=== PATIENT | male | born 1980 | race Caucasian/White ===

== ENCOUNTER 2016-03-08 03:02 | Emergency (ER) | payer OTHER ==
[2016-03-08 03:18] VITALS: BP 140/84; PULSE 92; TEMP 97.6; BMI 29.2
[2016-03-08] MEDS ORDERED: OXYCODONE/APAP 5/325MG COMBO TABLET PO ONE (03:30)
--- NOTE | 2016-03-08 03:35 | PDOC ---
History of Present Illness - General History Source: Patient Exam Limitations: No Limitations - History of Present Illness Initial Comments: 03/08/16 04:27 The patient is a 36-year-old male with no significant past medical history, and presents to the emergency department with right sided chest pain s/p collision with another person tonight. The patient states that he collided with the person during a soccer match. He reports the impact and pain is localized to the right side of the upper chest wall. The chest pain is exacerbated by inspiration, walking, and laying on his right side. He reports it feels like bad spasm. He reports associated shortness of breath. The patient denies headache, dizziness, or head trauma. The patient denies fever , chills, nausea, vomit, diarrhea and constipation. The patient denies dysuria, frequency, urgency and hematuria. Allergies: NKDA Social History: Denies tobacco, ETOH, or drug use. <Denise Lugo - Last Filed: 03/08/16 04:27> <Cori Hale - Last Filed: 03/08/16 05:39> - General Chief Complaint: Pain Stated Complaint: SIDE PAIN Time Seen by Provider: 03/08/16 03:19 Past History <Denise Lugo - Last Filed: 03/08/16 04:27> - Psycho/Social/Smoking Cessation Hx Suicidal Ideation: No Smoking History: Never smoked Have you smoked in the past 12 months: No Information on smoking cessation initiated: No Hx Alcohol Use: No Drug/Substance Use Hx: No <Cori Hale - Last Filed: 03/08/16 05:39> - Past Medical History Allergies/Adverse Reactions: Allergies Allergy/AdvReac Type Severity Reaction Status Date / Time No Known Allergies Allergy Verified 03/08/16 03:12 Home Medications: Ambulatory Orders NK [No Known Home Medication] 03/08/16 Review of Systems - Review of Systems Able to Perform ROS?: Yes Comments:: 03/08/16 04:27 CONSTITUTIONAL: Absent: fever, chills, diaphoresis, generalized weakness, malaise, loss of appetite HEENT: Absent: rhinorrhea, nasal congestion, throat pain, throat swelling, difficulty swallowing, mouth swelling, ear pain, eye pain, visual changes CARDIOVASCULAR: Present: (+) right sided chest pain Absent: chest pain, syncope, palpitations, irregular heart rate, lightheadedness , peripheral edema RESPIRATORY: Present: (+) shortness of breath Absent: cough, dyspnea with exertion, orthopnea, wheezing, stridor, hemoptysis GASTROINTESTINAL: Absent: abdominal pain, abdominal distension, nausea, vomiting, diarrhea, constipation, melena, hematochezia GENITOURINARY: Absent: dysuria, frequency, urgency, hesitancy, hematuria, flank pain, genital pain MUSCULOSKELETAL: Absent: myalgia, arthralgia, joint swelling SKIN: Absent: rash, itching, pallor HEMATOLOGIC/IMMUNOLOGIC: Absent: easy bleeding, easy bruising, lymphadenopathy, frequent infections ENDOCRINE: Absent: unexplained weight gain, unexplained weight loss, heat intolerance, cold intolerance NEUROLOGIC: Absent: headache, focal weakness or paresthesias, dizziness, unsteady gait, seizure, mental status changes, bladder or bowel incontinence PSYCHIATRIC: Absent: anxiety, depression, suicidal or homicidal ideation, hallucinations. <LugoDenise - Last Filed: 03/08/16 04:27> *Physical Exam - Vital Signs Last Vital Signs Temp Pulse Resp BP Pulse Ox 97.6 F 92 H 18 140/84 99 03/08/16 03:13 03/08/16 03:13 03/08/16 03:13 03/08/16 03:13 03/08/16 03:13 - Physical Exam Comments: 03/08/16 04:28 GENERAL: Well developed, well nourished. Awake and alert. No acute distress. HEENT: Normocephalic, atraumatic. PERRLA, EOMI. No conjunctival pallor. Sclera are non- icteric. Moist mucous membranes. Oropharynx is clear. NECK: Supple. Full ROM. No JVD. Carotid pulses 2+ and symmetric, without bruits. No thyromegaly. No lymphadenopathy. CARDIOVASCULAR: (+) Non-tender in the chest. Regular rate and rhythm. No murmurs, rubs, or gallops. Distal pulses are 2+ and symmetric. PULMONARY: (+) Splinting on inhalation. Lungs clear to auscultation bilaterally. No wheezing, rales or rhonchi. ABDOMINAL: Soft. Non-distended. No rebound or guarding. No organomegaly. Normoactive bowel sounds. MUSCULOSKELETAL Normal range of motion at all joints. No bony deformities or tenderness. No CVA tenderness. EXTREMITIES: No cyanosis. No clubbing. No edema. No calf tenderness. SKIN: Warm and dry. Normal capillary refill. No rashes. No jaundice. NEUROLOGICAL: Alert, awake, appropriate. Cranial nerves 2-12 intact. No deficits to light touch and temperature in face, upper extremities and lower extremities. No motor deficits in the in face, upper extremities and lower extremities. Normoreflexic in the upper and lower extremities. Normal speech. Toes are down- going bilaterally. Gait is normal without ataxia. PSYCHIATRIC: Cooperative. Good eye contact. Appropriate mood and affect. <Denise Lugo - Last Filed: 03/08/16 04:27> - Vital Signs Last Vital Signs Temp Pulse Resp BP Pulse Ox 97.6 F 92 H 18 140/84 99 03/08/16 03:13 03/08/16 03:13 03/08/16 03:13 03/08/16 03:13 03/08/16 03:13 <Cori Hale - Last Filed: 03/08/16 05:39> ED Treatment Course - Medications Given in the ED: ED Medications Discontinued Medications Generic Name Dose Route Start Last Admin Trade Name Gradyq PRN Reason Stop Dose Admin Ibuprofen 600 mg 03/08/16 04:05 03/08/16 04:14 Motrin - PO 03/08/16 04:06 600 mg ONCE ONE Administration Oxycodone/Acetaminophen 2 combo 03/08/16 03:30 03/08/16 03:59 Percocet 5/325 - PO 03/08/16 03:31 2 combo ONCE ONE Administration <Denise Lugo - Last Filed: 03/08/16 04:27> Medical Decision Making - Medical Decision Making 03/08/16 03:33 Pt had right side injury while playing soccer; he crashed into another player. Pt has SOB, splinting with breaths. O2sat is 92%. CXR pending. Pt has no abd tenderness; no evidence or concern for liver or spleen laceration. Pt has no fractures of ribs seen on CXR; also no pneumothorax; he never took motrin or tylenol at home. Pt feels better with percocet and motrin in the ER. He will be asked to go home with analgesics. Rest. <Cori Hale - Last Filed: 03/08/16 05:39> *DC/Admit/Observation/Transfer - Attestations Scribe Attestion: 03/08/16 04:28 Documentation prepared by Denise Lugo, acting as medical health researcher for Cori Hale MD. <Denise Lugo - Last Filed: 03/08/16 04:27> - Discharge Dispostion Admit: No <Cori Hale - Last Filed: 03/08/16 05:39> Diagnosis at time of Disposition: Chest wall contusion - Discharge Dispostion Disposition: HOME Condition at time of disposition: Stable - Patient Instructions Printed Discharge Instructions: Contusion, DI for Rib Contusion - Post Discharge Activity Work/School Note: Back to Work
[2016-03-08] MEDS ORDERED: OXYCODONE/APAP 5/325MG COMBO TABLET ONE (03:56)
[2016-03-08] MEDS ORDERED: IBUPROFEN 600 MG TABLET (FP) PO ONE ×2 (04:05→04:11)
== END 2016-03-08 05:07 | disposition home or self-care (01) ==
LOC: JER 03:02
DX: S20.211A Contusion of right front wall of thorax, initial encounter (principal); W51.XXXA Accidental striking against or bumped into by another person, initial encounter; Y93.66 Activity, soccer; Y92.322 Soccer field as the place of occurrence of the external cause; Y99.8 Other external cause status
CPT/HCPCS: 71020-TC; 99282-25